=== PATIENT | female | born 1950 | race Caucasian/White ===

== ENCOUNTER 2018-06-13 13:25 | Day surgery (SDC) | payer MEDICARE, OTHER, SELFPAY ==
[2018-06-12 11:46] VITALS: BMI 25.2
[2018-06-13] VITALS (10 sets, daily range): BP systolic 102–150; BP diastolic 67–84; PULSE 68–88; RESP 8–16; TEMP 36.3–36.6; O2SAT 94–100; BMI 24.3
[2018-06-13] MEDS: LACTATED RINGERS 1,000 ML 42 ML IV ×2 (14:19→18:27)
--- NOTE | 2018-06-13 16:07 | PM.PREOP ---
Pre-operative Note Interval Note Pre-op Check: Yes History & Physical Reviewed by Physician and Yes Exam Performed Changes: No
--- NOTE | 2018-06-13 16:07 | PM.OP.1 ---
Operative Date/Time/Diagnoses Date of procedure: 06/13/18 Time of procedure: 16:07 Pre-op diagnosis: left radius fracture Post-op diagnosis: same Procedure & Clinicians Procedure: ORIF left distal radius Same procedure as scheduled: Yes Indications: This is a 67-year-old female who fell and has a grossly displaced left distal intra-articular radius fractures about the operating for open reduction internal fixation. Procedure alternatives risks benefits and complications discussed in detail preoperatively. Surgeon: Eva Contreras Chronometer Assembler: Cristian Flowers Anesthesia Type: General Operative Notes Findings: Markedly comminuted displaced distal intra-articular radius fracture, acceptable reduction and fixation Closure Type: primary Specimen(s): none sent Implants & Drains: DVR distal radius fracture plate Estimated Blood Loss (mL): 100 Blood products transfused: none Tourniquet time (min): 68 Procedure in detail: Patient was brought the operating room she underwent the induction of a general anesthesia. Her left upper extremities prepped draped standard sterile fashion. Antibiotics were given and a time-out was performed. High arm tourniquet was applied and elevated after exsanguinating the arm with the Esmarch. A volar incision was made on over the flexor carpi radialis the incisions was extended slightly distally in a curvilinear direction across the wrist crease. Dissection was carried out through skin and subcutaneous tissues. The superficial nerves were carefully protected. The fascia over the flexor carpi radialis was incised. The tendon was then meticulously mobilized. An incision was made in the deep fascia and the muscle was carefully stripped off of the distal radius. The fracture was evaluated. It was quite tight and there was a significant component of his shaft comminution which extended proximally. Fracture was meticulously reduced. It was a little difficult to mobilize reduced but an acceptable overall reduction was achieved. It was then fixed with a volar plate x-rays were used to confirmed acceptable overall reduction, alignment and the location of the screws distally. Multiple radiographs were used to check that there was no intra-articular penetration and that the overall alignment of the fracture provided zoroastrianism of height and volar inclination. The wound was meticulously irrigated with normal saline. Once the all of the screw location and fixation had been confirmed Marcaine was injected the fascia was closed with interrupted Vicryl. Skin was closed with interrupted nylon. Additional Marcaine was injected. Patient was placed in a short-arm splint. Patient tolerated the procedure well she was transferred cover room in satisfactory condition complications none. Complications: none Condition: stable Disposition: same day surgery Plan for aftercare: Return to clinic in 10-14 days for x-rays and she can probably be given a removable splint to continue to work on finger range of motion and elbow range of motion with very light wrist range of motion. No lifting. If her x-rays show any additional comminution or displacement she can be likely be placed in a short-arm cast.
[2018-06-13] MEDS: CEFAZOLIN 2 GM/100 ML FROZ.PIGGY IV (16:12)
[2018-06-13] MEDS: BUPIVACAINE 0.5% (PF) VIAL 30 ML INJ (17:36)
[2018-06-13] MEDS: OXYCODONE/ACETAMINOPHEN 5/325 TABLET 1 TAB PO ×2 (18:47→19:00)
== END 2018-06-13 19:29 | disposition home or self-care (01) ==
PROVIDERS: PCP Family Medicine; Visit Provider Orthopaedic Surgery
PROC: (CPT 25575; principal; 2018-06-13 15:00)
DX: S52.572A Other intraarticular fracture of lower end of left radius, initial encounter for closed fracture (principal); S52.615A Nondisplaced fracture of left ulna styloid process, initial encounter for closed fracture; W19.XXXA Unspecified fall, initial encounter; Y93.21 Activity, ice skating
CPT/HCPCS: 25575; J0690; J1100; J2250; J2405; J2704; J3010

== ENCOUNTER → 2018-07-03 11:08 | Outpatient (CLI) | payer MEDICARE, OTHER, SELFPAY ==
--- NOTE | 2018-07-03 | DI.MG.S_ITS ---
BILATERAL DIGITAL SCREENING MAMMOGRAM 3D/2D WITH CAD: 07/03/2018 CLINICAL: Routine screening. Family history of breast cancer. Comparison is made to exams dated: 06/07/2017 mammogram, 05/22/2016 mammogram, and 05/13/2015 mammogram - [facility]. The tissue of both breasts is heterogeneously dense. This may lower the sensitivity of mammography. Current study was also evaluated with a Computer Aided Detection (CAD) system. No significant masses, calcifications, or other findings are seen in either breast. There has been no significant interval change. IMPRESSION: NEGATIVE There is no mammographic evidence of malignancy. A 1 year screening mammogram is recommended. This exam was interpreted at Station ID: [id number]. NOTE: For mammograms, a report in lay terms will be sent to the patient. Approximately 15% of breast malignancies will not be visualized mammographically. In the management of a palpable breast mass, a negative mammogram must not discourage biopsy of a clinically suspicious lesion. Electronically Signed By: Rebecca bashir/lawson:07/03/2018 17:00:45 letter sent: Normal Exam ACR BI-RADS Category 1: Negative 3341F
== END ==
PROVIDERS: PCP Family Medicine; Visit Provider Family Medicine
DX: Z12.31 Encounter for screening mammogram for malignant neoplasm of breast (principal); Z80.3 Family history of malignant neoplasm of breast
CPT/HCPCS: 77063; 77067

== ENCOUNTER → 2019-07-08 15:14 | Outpatient (CLI) | payer MEDICARE, OTHER, SELFPAY ==
--- NOTE | 2019-07-08 15:18 | DI.MG.S_ITS ---
BILATERAL DIGITAL SCREENING MAMMOGRAM 3D/2D WITH CAD: 07/08/2019 CLINICAL: Routine screening. Family history of breast cancer. Comparison is made to exams dated: 07/03/2018 mammogram, 06/07/2017 mammogram, and 05/22/2016 mammogram - [facility]. The tissue of both breasts is heterogeneously dense. This may lower the sensitivity of mammography. Current study was also evaluated with a Computer Aided Detection (CAD) system. There is a round mass in the left breast at 5 o'clock middle depth. No other significant masses, calcifications, or other findings are seen in either breast. IMPRESSION: INCOMPLETE: NEEDS ADDITIONAL IMAGING EVALUATION The round mass in the left breast is indeterminate. Additional views with possible ultrasound are recommended. This exam was interpreted at Station ID: [id number]. NOTE: For mammograms, a report in lay terms will be sent to the patient. Approximately 15% of breast malignancies will not be visualized mammographically. In the management of a palpable breast mass, a negative mammogram must not discourage biopsy of a clinically suspicious lesion. Electronically Signed By: Rebecca bashir/lawson:07/08/2019 16:03:10 letter sent: Additional Imaging Needed ACR BI-RADS Category 0: Incomplete 3340F
== END ==
PROVIDERS: PCP Family Medicine; Visit Provider Family Medicine
DX: Z12.31 Encounter for screening mammogram for malignant neoplasm of breast (principal); Z80.3 Family history of malignant neoplasm of breast
CPT/HCPCS: 77063; 77067

== ENCOUNTER → 2019-08-12 14:04 | Outpatient (CLI) | payer MEDICARE, OTHER, SELFPAY ==
--- NOTE | 2019-08-12 | DI.MG.S_ITS ---
UNILATERAL LEFT DIGITAL DIAGNOSTIC MAMMOGRAM 3D/2D WITH ADDITIONAL VIEWS: 08/12/2019 CLINICAL: Additional evaluation requested from prior study. Comparison is made to exams dated: 07/08/2019 mammogram, 07/03/2018 mammogram, and 06/07/2017 mammogram - [facility]. The tissue of left breast is heterogeneously dense. This may lower the sensitivity of mammography. There is a persistent 0.7 cm round mass in the left breast at 5 o'clock middle depth. This is confirmed on today's additional views. No other significant masses or calcifications are seen in the breast. IMPRESSION: INCOMPLETE: NEEDS ADDITIONAL IMAGING EVALUATION The 0.7 cm round mass in the left breast is indeterminate. An ultrasound is recommended for further evaluation and is scheduled to immediately follow this study. This exam was interpreted at Station ID: [id number]. NOTE: For mammograms, a report in lay terms will be sent to the patient. Approximately 15% of breast malignancies will not be visualized mammographically. In the management of a palpable breast mass, a negative mammogram must not discourage biopsy of a clinically suspicious lesion. Electronically Signed By: Brien Snowden M.D. aty/:08/12/2019 15:08:19 ACR BI-RADS Category 0: Incomplete 3340F
--- NOTE | 2019-08-12 | DI.US.S_ITS ---
ULTRASOUND OF LEFT BREAST AND AXILLA: 08/12/2019 CLINICAL: Abn mammo. Comparison is made to exams dated: 08/12/2019 mammogram, 07/08/2019 mammogram, 07/03/2018 mammogram, 06/07/2017 mammogram, 05/22/2016 mammogram, and 05/13/2015 mammogram - [facility]. Color flow and real-time ultrasound of the left breast axilla were performed. Thomas scale images of the real-time examination were reviewed. There is a 0.6 cm x 0.6 cm x 0.5 cm wider than tall oval cyst in the left breast at 5 o'clock middle depth 4 cm from the nipple. This oval cyst is hypoechoic with a well-defined boundary and internal echoes. This correlates with mammography findings. Color flow imaging demonstrates that there is no vascularity present. No significant abnormalities were seen sonographically in the left axilla. IMPRESSION: PROBABLY BENIGN The 0.6 cm x 0.6 cm x 0.5 cm wider than tall oval cyst in the left breast likely represents a complicated cyst and is probably benign. A follow-up left mammogram and an ultrasound in 6 months is recommended to demonstrate stability. This exam was interpreted at Station ID: [id number]. Electronically Signed By: Brien Snowden M.D. aty/:08/12/2019 16:26:48 letter sent: Followup Recommended Ultrasound BI-RADS: 3 Probably benign
== END ==
PROVIDERS: PCP Family Medicine; Referring Provider Family Medicine; Visit Provider Family Medicine
DX: R92.8 Other abnormal and inconclusive findings on diagnostic imaging of breast (principal); N60.02 Solitary cyst of left breast; M81.0 Age-related osteoporosis without current pathological fracture; Z78.0 Asymptomatic menopausal state
CPT/HCPCS: 76642; 77065; 77080; G0279

== ENCOUNTER → 2020-02-11 09:32 | Outpatient (CLI) | payer MEDICARE, OTHER, SELFPAY ==
--- NOTE | 2020-02-11 | DI.MG.S_ITS ---
UNILATERAL LEFT DIGITAL DIAGNOSTIC MAMMOGRAM 3D/2D SHORT-TERM FOLLOW-UP: 02/11/2020 CLINICAL: Patient returns for a 6 month follow up of the left breast. Comparison is made to exams dated: 08/12/2019 mammogram, 07/08/2019 mammogram, and 07/03/2018 mammogram - [facility]. The tissue of left breast is heterogeneously dense. This may lower the sensitivity of mammography. There is a stable round focal asymmetry in the left breast central to the nipple posterior depth. No other significant masses or calcifications are seen in the breast. IMPRESSION: INCOMPLETE: NEEDS ADDITIONAL IMAGING EVALUATION The stable round focal asymmetry in the left breast is indeterminate. A targeted ultrasound of the left breast is recommended and will be performed immediately following this exam. This exam was interpreted at Station ID: [id number]. NOTE: For mammograms, a report in lay terms will be sent to the patient. Approximately 15% of breast malignancies will not be visualized mammographically. In the management of a palpable breast mass, a negative mammogram must not discourage biopsy of a clinically suspicious lesion. Electronically Signed By: Rebecca Perea M.D. lk/:02/11/2020 10:00:12 ACR BI-RADS Category 0: Incomplete 3340F
--- NOTE | 2020-02-11 | DI.US.S_ITS ---
ULTRASOUND OF LEFT BREAST: 02/11/2020 CLINICAL: 6 month follow-up of cysts. Comparison is made to exams dated: 02/11/2020 mammogram, 08/12/2019 ultrasound, 08/12/2019 mammogram, and 07/08/2019 mammogram - [facility]. Color flow and real-time ultrasound of the left breast were performed on the areas of interest. There is an oval cyst in the left breast at 4 o'clock middle depth. This oval cyst is hypoechoic with a well-defined boundary and internal echoes. This abnormality is decreased in size and correlates with mammography findings. Color flow imaging demonstrates that there is no vascularity present. IMPRESSION: PROBABLY BENIGN The oval cyst in the left breast is consistent with a complicated cyst and is probably benign. A follow-up mammogram and an ultrasound in 6 months is recommended to demonstrate stability. This exam was interpreted at Station ID: [id number]. SUMMARY: The patient will be due for her bilateral mammogram at this time. Electronically Signed By: Rebecca bashir/:02/11/2020 10:46:46 letter sent: Followup Recommended Ultrasound BI-RADS: 3 Probably benign
== END ==
PROVIDERS: PCP Family Medicine; Referring Provider Family Medicine; Visit Provider Family Medicine
DX: R92.8 Other abnormal and inconclusive findings on diagnostic imaging of breast (principal); N60.02 Solitary cyst of left breast
CPT/HCPCS: 76642; 77065; G0279